=== PATIENT | female | born 1950 | race American Indian/Alaskan Native ===

== ENCOUNTER 2018-06-14 13:12 | Inpatient (IN) | payer MEDICARE, MEDICAID ==
[~2018-06-14] VITALS: Ht 152.4 cm; Wt 134.7 kg
[2018-06-14] MEDS ORDERED: IPRATROPIUM BROMIDE (0.02%) 0.5MG/2.5ML NEB HHN STA (13:15)
[2018-06-14] MEDS ORDERED: ASPIRIN 81MG TABLET PO ONE (13:15)
[2018-06-14] MEDS ORDERED: ALBUTEROL (0.083%) 2.5MG/3ML NEB HHN STA (13:15)
[2018-06-14 13:52] LABS: BG BASE EXCESS -1.1 mmol/L (-2.0-2.0); BG BILEVEL POS AIRWAY PRESSURE ST: 18/5; BG CARBOXYHEMOGLOBIN 0.5 % (0.5-1.5); BG DEOXYHEMOGLOBIN 0.5 % (0.0-5.0); BG FRACTION INSPIRED OXYGEN 100; BG HCO3 ACT 23.9 mmol/L (22.0-26.0); BG METHEMOGLOBIN 0.2 % (0.0-1.5); BG OXYGEN SATURATION 99.5 % (92.0-98.5); BG OXYHEMOGLOBIN 98.8 % (94.0-97.0); BG PH 7.383 (7.350-7.450); BG PO2 404.3 mmHg (75.0-100.0); BG SAMPLE SITE LEFT RADIAL; BG TOTAL HEMOGLOBIN 11.8 g/dL (12.0-18.0); BG VENT MODE MASK - BIPAP; BG VENT RATE 16 set
[2018-06-14 13:54] LABS: HEMATOCRIT. 34.4 % (36.0-48.0); HEMOGLOBIN. 11.4 g/dL (12.0-16.0); MEAN CORPUSCULAR HEMOGLOBIN 27.2 pg (28.0-32.0); MEAN CORPUSCULAR VOLUME 82.1 fL (81.0-99.0); MEAN PLATELET VOLUME 8.7 fl (7.4-10.4); PLATELET 194 x1000/uL (130-400); RED BLOOD CELL COUNT 4.19 mill/uL (4.2-5.4); RED CELL DISTRIBUTION WIDTH 14.3 % (11.6-14.6)
[2018-06-14 14:01] LABS: CHLORIDE 111 mEq/L (98-107)
[2018-06-14 14:22] LABS: ATYPICAL LYMPHOCYTES 1; PLATELET ESTIMATE NORMAL
[2018-06-14] MEDS ORDERED: FUROSEMIDE 40MG/4ML VIAL IVP ONE (14:45)
[2018-06-14] MEDS ORDERED: NITROGLYCERIN 0.4MG TABLET SL SL ONE (16:00)
[2018-06-14] MEDS ORDERED: CLONIDINE 0.1MG TABLET PO PRN ×2 (16:45→19:00)
[2018-06-14] MEDS ORDERED: KETOROLAC 15MG/ML VIAL IV PRN (16:45)
[2018-06-14] MEDS ORDERED: GUAIFENESIN 200MG/10ML SUGAR FREE UDC PO PRN (16:45)
[2018-06-14] MEDS ORDERED: ONDANSETRON HCL 4MG/2ML INJ IV PRN (16:45)
[2018-06-14] MEDS ORDERED: DOCUSATE SODIUM 100MG CAPSULE PO PRN (16:45)
[2018-06-14] MEDS ORDERED: LORAZEPAM 0.5MG TABLET PO PRN (16:45)
[2018-06-14] MEDS ORDERED: ENOXAPARIN 40MG/0.4ML SYR SUBCUT SCH (16:45)
[2018-06-14] MEDS ORDERED: NITROGLYCERIN 0.4MG TABLET SL SL PRN (16:45)
[2018-06-14] MEDS ORDERED: ACETAMINOPHEN 325MG TABLET PO PRN (16:45)
[2018-06-14] MEDS ORDERED: LABETALOL HCL 20MG/4ML CARPUJECT IV ONE (16:45)
[2018-06-14] MEDS ORDERED: IPRATROPIUM/ALBUTEROL 0.5-3(2.5)MG/3ML NEB INH PRN (16:45)
[2018-06-14] MEDS ORDERED: MAGNESIUM/ALUMINUM HYDROXIDE/SIMETHICONE 30ML UDC PO PRN (16:45)
[2018-06-14 23:49] LABS: CREATINE KINASE 159 IU/L (26-192); CREATINE KINASE MB FRACTION < 1.0 ng/mL (0.5-3.6)
[2018-06-15] VITALS: BP_SYST 191; BP_SYST 199; BP_DIAS 98
[2018-06-15] MEDS ORDERED: MORPHINE SULFATE 4 MG/ML CPJ (NOT FOR IM USE) IV PRN (00:09)
[2018-06-15] MEDS ORDERED: ZOLPIDEM TARTRATE 5MG TABLET PO PRN (00:10)
[2018-06-15] MEDS ORDERED: TRAMADOL 50MG TABLET PO PRN (00:10)
[2018-06-15] MEDS ORDERED: NA PHOS,M-B/NA PHOS,DI-BA ENEMA 118ML PR PRN (00:13)
[2018-06-15] MEDS: IPRATROPIUM/ALBUTEROL 0.5-3(2.5)MG/3ML NEB HHN SCH ×6 (00:26→21:15)
[2018-06-15] MEDS: METOPROLOL TARTRATE 25MG TABLET PO SCH ×3 (00:44→20:22)
[2018-06-15] MEDS: SPIRONOLACTONE 25MG TABLET PO SCH ×3 (00:45→20:22)
[2018-06-15] MEDS: LISINOPRIL 20MG TABLET PO SCH ×3 (00:45→20:23)
[2018-06-15] MEDS: FUROSEMIDE 40MG/4ML VIAL IVP SCH ×3 (00:46→20:24)
[2018-06-15] MEDS ORDERED: CEFTRIAXONE 1 G PREMIX 50 ML IV SCH (01:00)
[2018-06-15] MEDS ORDERED: AZITHROMYCIN 500 MG in DEXT 5% WATER 250 ML IV SCH (02:00)
[2018-06-15 04:00] VITALS: BP 124/51
[2018-06-15] MEDS ORDERED: FURO-151 PO (04:53)
[2018-06-15] MEDS ORDERED: HYDR-4135 PO (04:53)
[2018-06-15] MEDS ORDERED: METHYLPREDNISOLONE SOD SUCC 125 MG/2 ML VIAL IV SCH (06:00)
[2018-06-15 07:38] LABS: CREATINE KINASE MB FRACTION 1.6 ng/mL (0.5-3.6)
[2018-06-15 08:00] VITALS: BP 139/59
[2018-06-15] MEDS ORDERED: FAMOTIDINE 20MG TABLET PO SCH (09:00)
[2018-06-15] MEDS: AMLODIPINE 10MG TABLET PO SCH (09:23)
[2018-06-15] MEDS: GUAIFENESIN/DM 600MG/30MG ER TAB 12HR PO SCH ×2 (09:24→20:22)
[2018-06-15] MEDS: FAMOTIDINE 20MG TABLET PO SCH (09:24)
[2018-06-15] MEDS: ASCORBIC ACID 500 MG TABLET PO SCH ×2 (09:24→20:22)
[2018-06-15] MEDS: ZINC SULFATE 220 MG ( 50 ) CAPSULE PO SCH (09:24)
[2018-06-15] MEDS: ASPIRIN 325MG EC TABLET PO SCH (09:24)
[2018-06-15] MEDS: ENOXAPARIN 30MG/0.3ML SYR SUBCUT SCH ×2 (09:25→20:21)
[2018-06-15 12:00] VITALS: BP 149/69
[2018-06-15] MEDS: BUDESONIDE 0.5MG/2ML NEB HHN SCH ×2 (14:09→21:15)
[2018-06-15 16:00] VITALS: BP 157/67
[2018-06-15] MEDS: CEFTRIAXONE 1 G PREMIX 50 ML IV SCH (20:23)
[2018-06-15] MEDS: AZITHROMYCIN 500 MG in DEXT 5% WATER 250 ML IV SCH (21:36)
[2018-06-16] MEDS: IPRATROPIUM/ALBUTEROL 0.5-3(2.5)MG/3ML NEB HHN SCH ×6 (01:30→20:47)
[2018-06-16 01:48] LABS: CLARITY URINE CLEAR (CLEAR); COLOR URINE YELLOW (YELLOW); KETONES URINE NEGATIVE (NEGATIVE); LEUKOCYTE ESTERASE URINE NEGATIVE (NEGATIVE); NITRITE URINE NEGATIVE (NEGATIVE); OCCULT BLOOD URINE NEGATIVE (NEGATIVE); PROTEIN URINE NEGATIVE (NEGATIVE); SPECIFIC GRAVITY URINE 1.007 (1.005-1.030); UROBILINOGEN URINE 0.2 E.U./dL (0.2-1.0)
[2018-06-16 02:02] LABS: *AMPHETAMINES SCREEN URINE NEGATIVE (NEGATIVE); *BARBITURATES SCREEN URINE NEGATIVE (NEGATIVE); *BENZODIAZEPINES SCREEN URINE NEGATIVE (NEGATIVE); *COCAINE SCREEN URINE NEGATIVE (NEGATIVE)
[2018-06-16 02:03] LABS: CANNABINOID URINE SCREEN NEGATIVE (NEGATIVE); METHADONE URINE SCREEN NEGATIVE (NEGATIVE); OPIATES URINE SCREEN NEGATIVE (NEGATIVE); PHENCYCLIDINE URINE SCREEN NEGATIVE (NEGATIVE)
[2018-06-16 04:00] VITALS: BP 171/93
[2018-06-16 08:00] VITALS: BP 161/77
[2018-06-16] MEDS: ASCORBIC ACID 500 MG TABLET PO SCH ×2 (09:42→20:31)
[2018-06-16] MEDS: SPIRONOLACTONE 25MG TABLET PO SCH ×2 (09:43→20:30)
[2018-06-16] MEDS: AMLODIPINE 10MG TABLET PO SCH (09:43)
[2018-06-16] MEDS: FAMOTIDINE 20MG TABLET PO SCH (09:43)
[2018-06-16] MEDS: LISINOPRIL 20MG TABLET PO SCH ×2 (09:43→20:34)
[2018-06-16] MEDS: ZINC SULFATE 220 MG ( 50 ) CAPSULE PO SCH (09:44)
[2018-06-16] MEDS: METOPROLOL TARTRATE 25MG TABLET PO SCH ×2 (09:44→20:31)
[2018-06-16] MEDS: ASPIRIN 325MG EC TABLET PO SCH (09:44)
[2018-06-16] MEDS: GUAIFENESIN/DM 600MG/30MG ER TAB 12HR PO SCH ×2 (09:44→20:30)
[2018-06-16] MEDS: ENOXAPARIN 30MG/0.3ML SYR SUBCUT SCH ×2 (09:45→20:34)
[2018-06-16] MEDS: FUROSEMIDE 40MG/4ML VIAL IVP SCH ×2 (09:45→20:31)
[2018-06-16] MEDS: BUDESONIDE 0.5MG/2ML NEB HHN SCH (09:57)
[2018-06-16 12:00] VITALS: BP 131/52
[2018-06-16 16:00] VITALS: BP 145/69
[2018-06-16 20:00] VITALS: BP 126/56
[2018-06-16] MEDS: CEFTRIAXONE 1 G PREMIX 50 ML IV SCH (20:30)
[2018-06-16] MEDS: AZITHROMYCIN 500 MG in DEXT 5% WATER 250 ML IV SCH (22:06)
[2018-06-17] VITALS: BP 110/64
[2018-06-17] MEDS: IPRATROPIUM/ALBUTEROL 0.5-3(2.5)MG/3ML NEB HHN SCH ×6 (00:39→22:55)
[2018-06-17 04:00] VITALS: BP 156/72
[2018-06-17 08:00] VITALS: BP 149/69
[2018-06-17] MEDS: ENOXAPARIN 30MG/0.3ML SYR SUBCUT SCH ×2 (08:26→20:38)
[2018-06-17] MEDS: ZINC SULFATE 220 MG ( 50 ) CAPSULE PO SCH (08:27)
[2018-06-17] MEDS: LISINOPRIL 20MG TABLET PO SCH ×2 (08:27→20:37)
[2018-06-17] MEDS: AMLODIPINE 10MG TABLET PO SCH (08:27)
[2018-06-17] MEDS: FAMOTIDINE 20MG TABLET PO SCH (08:27)
[2018-06-17] MEDS: SPIRONOLACTONE 25MG TABLET PO SCH ×2 (08:27→20:37)
[2018-06-17] MEDS: ASCORBIC ACID 500 MG TABLET PO SCH ×2 (08:27→20:37)
[2018-06-17] MEDS: FUROSEMIDE 40MG/4ML VIAL IVP SCH ×2 (08:27→20:37)
[2018-06-17] MEDS: ASPIRIN 325MG EC TABLET PO SCH (08:27)
[2018-06-17] MEDS: METOPROLOL TARTRATE 25MG TABLET PO SCH ×2 (08:32→20:37)
[2018-06-17] MEDS: BUDESONIDE 0.5MG/2ML NEB HHN SCH ×2 (09:28→22:55)
[2018-06-17] MEDS: GUAIFENESIN/DM 600MG/30MG ER TAB 12HR PO SCH ×2 (10:26→20:37)
[2018-06-17 12:00] VITALS: BP 139/71
[2018-06-17 16:00] VITALS: BP 147/72
[2018-06-17] MEDS: LEVOFLOXACIN 250MG TABLET PO SCH (17:03)
[2018-06-17 20:00] VITALS: BP 124/68
[2018-06-18] VITALS: BP 142/68
[2018-06-18] MEDS: IPRATROPIUM/ALBUTEROL 0.5-3(2.5)MG/3ML NEB HHN SCH ×4 (01:51→13:21)
[2018-06-18 04:00] VITALS: BP 140/60
[2018-06-18 08:00] VITALS: BP 142/67
[2018-06-18] MEDS: FAMOTIDINE 20MG TABLET PO SCH (08:49)
[2018-06-18] MEDS: GUAIFENESIN/DM 600MG/30MG ER TAB 12HR PO SCH (08:49)
[2018-06-18] MEDS: ZINC SULFATE 220 MG ( 50 ) CAPSULE PO SCH (08:49)
[2018-06-18] MEDS: ASPIRIN 325MG EC TABLET PO SCH (08:49)
[2018-06-18] MEDS: LISINOPRIL 20MG TABLET PO SCH (08:50)
[2018-06-18] MEDS: ASCORBIC ACID 500 MG TABLET PO SCH (08:50)
[2018-06-18] MEDS: AMLODIPINE 10MG TABLET PO SCH (08:51)
[2018-06-18] MEDS: METOPROLOL TARTRATE 25MG TABLET PO SCH (08:51)
[2018-06-18] MEDS: ENOXAPARIN 30MG/0.3ML SYR SUBCUT SCH (08:52)
[2018-06-18] MEDS: BUDESONIDE 0.5MG/2ML NEB HHN SCH (09:22)
[2018-06-18] MEDS: LEVOFLOXACIN 250MG TABLET PO SCH (11:48)
[2018-06-18 12:00] VITALS: BP 134/67
[2018-06-18 16:56] VITALS: BP 134/67
== END 2018-06-18 18:38 | disposition home or self-care (01) | DRG 280 ==
LOC: EDBD 13:31 → ER 13:31 → 7WST 15:53 → EDBEDREQ 15:56 → SUPCPDRO 16:43 → ENRESERV 22:21
PROVIDERS: ADMIT Internal Medicine; ATTEND Internal Medicine
PROC: 5A09357 Assistance with Respiratory Ventilation, Less than 24 Consecutive Hours, Continuous Positive Airway Pressure (ICD-10-PCS; principal; 2018-06-14)
DX: I21.4 Non-ST elevation (NSTEMI) myocardial infarction (principal); J96.00 Acute respiratory failure, unspecified whether with hypoxia or hypercapnia; I50.33 Acute on chronic diastolic (congestive) heart failure; J44.1 Chronic obstructive pulmonary disease with (acute) exacerbation; J44.0 Chronic obstructive pulmonary disease with (acute) lower respiratory infection; J98.11 Atelectasis; Z68.43 Body mass index [BMI] 50.0-59.9, adult; I11.0 Hypertensive heart disease with heart failure; D72.825 Bandemia; E66.01 Morbid (severe) obesity due to excess calories; Z79.899 Other long term (current) drug therapy
CPT/HCPCS: 36415; 36600; 71045; 80061; 80305; 82375; 82550; 82553; 82805; 83036; 83605; 83880; 84484; 87804; 93005; 93306; 93970; 94618; 94640; 94660; 96374; 96375; 97116; 97162; 97166; 99291; J0456; J0696; J1650; J1940; J2405; J2930; J3490; J7050; J7060; J7611; J7620; J7626

== ENCOUNTER 2021-01-08 04:13 | Inpatient (IN) | payer MEDICARE, MEDICAID ==
[~2021-01-08] VITALS: Ht 152.4 cm; Wt 137.0 kg
[~2021-01-08 04:13] MED LIST: FURO-151 PO; HYDR-4135 PO
[2021-01-08] MEDS ORDERED: ALBUTEROL (0.083%) 2.5MG/3ML NEB HHN STA (04:24)
[2021-01-08] MEDS ORDERED: IPRATROPIUM BROMIDE (0.02%) 0.5MG/2.5ML NEB HHN STA (04:24)
[2021-01-08] MEDS ORDERED: PREDNISONE 20MG TABLET PO STA (04:24)
[2021-01-08] MEDS ORDERED: MAGNESIUM 2 G PREMIX 50 ML IV ONE (04:30)
[2021-01-08 05:41] LABS: CHLORIDE 105 mEq/L (98-107)
[2021-01-08 06:12] LABS: HEMATOCRIT 34.3 % (36.0-48.0); HEMOGLOBIN 11.6 g/dL (12.0-16.0); MEAN CORPUSCULAR VOLUME 82.7 fL (81.0-99.0); PLATELET 243 x1000/uL (130-400); RED BLOOD CELL COUNT 4.14 mill/uL (4.2-5.4); RED CELL DISTRIBUTION WIDTH 14.6 % (11.6-14.6)
[2021-01-08] MEDS ORDERED: IPRATROPIUM/ALBUTEROL 0.5-3(2.5)MG/3ML NEB HHN PRN (08:15)
[2021-01-08] MEDS ORDERED: NA PHOS,M-B/NA PHOS,DI-BA ENEMA 118ML PR PRN (08:15)
[2021-01-08] MEDS ORDERED: GUAIFENESIN 200MG/10ML SUGAR FREE UDC PO PRN (08:15)
[2021-01-08] MEDS ORDERED: MAGNESIUM/ALUMINUM HYDROXIDE/SIMETHICONE 30ML UDC PO PRN (08:15)
[2021-01-08] MEDS ORDERED: DOCUSATE SODIUM 100MG CAPSULE PO PRN (08:15)
[2021-01-08] MEDS ORDERED: CEFTRIAXONE 1 G PREMIX 50 ML IV NR (08:15)
[2021-01-08] MEDS ORDERED: LORAZEPAM 2MG/ML CPJ IV PRN (08:15)
[2021-01-08] MEDS ORDERED: HYDROCODONE/ACETAMINOPHEN 5/325MG TABLET PO PRN (08:15)
[2021-01-08] MEDS ORDERED: ONDANSETRON HCL 4MG/2ML INJ IV PRN (08:15)
[2021-01-08] MEDS: IPRATROPIUM/ALBUTEROL 0.5-3(2.5)MG/3ML NEB HHN SCH ×3 (10:27→20:35)
[2021-01-08] MEDS: METHYLPREDNISOLONE SOD SUCC 125 MG/2 ML VIAL IV SCH ×3 (10:37→22:44)
[2021-01-08] MEDS: ENOXAPARIN 40MG/0.4ML SYR SUBCUT SCH (10:42)
[2021-01-08] MEDS: AZITHROMYCIN 500 MG in DEXT 5% WATER 250 ML IV SCH (15:42)
[2021-01-08] MEDS: FUROSEMIDE 40MG TABLET PO SCH (15:42)
[2021-01-08] MEDS: FLUTICASONE PROPIONATE 50MCG/SPRAY BOTTLE BOTHNSTRLS SCH ×2 (18:05→23:21)
[2021-01-08] MEDS: BENZONATATE 100MG CAPSULE PO SCH ×2 (18:05→23:21)
[2021-01-08] MEDS ORDERED: NALOXONE HCL 0.4MG/ML VIAL IV PRN (20:45)
[2021-01-08 22:55] VITALS: BP_SYST 142; BP_DIAS 63; BP_DIAS 67
[2021-01-09] VITALS: BP 140/66
[2021-01-09] MEDS: GUAIFENESIN-DM 200MG-20MG/10ML UDC PO PRN ×4 (00:01→22:36)
[2021-01-09] MEDS ORDERED: LISI40TA13 PO (00:43)
[2021-01-09] MEDS ORDERED: FURO80TA87 MT (00:43)
[2021-01-09] MEDS ORDERED: POTA-9 PO (00:43)
[2021-01-09] MEDS: METHYLPREDNISOLONE SOD SUCC 125 MG/2 ML VIAL IV SCH ×2 (02:18→08:45)
[2021-01-09] MEDS: IPRATROPIUM/ALBUTEROL 0.5-3(2.5)MG/3ML NEB HHN SCH ×4 (02:37→20:16)
[2021-01-09 04:00] VITALS: BP 144/83
[2021-01-09] MEDS: BENZONATATE 100MG CAPSULE PO SCH ×3 (06:04→21:24)
[2021-01-09] MEDS ORDERED: CEFTRIAXONE 1,000 MG in DEXTROSE 5% WATER 50 ML IV SCH (08:00)
[2021-01-09] MEDS: AZITHROMYCIN 500 MG in DEXT 5% WATER 250 ML IV SCH (08:42)
[2021-01-09] MEDS: FLUTICASONE PROPIONATE 50MCG/SPRAY BOTTLE BOTHNSTRLS SCH ×2 (08:43→21:24)
[2021-01-09] MEDS: FUROSEMIDE 40MG TABLET PO SCH (08:44)
[2021-01-09] MEDS: ENOXAPARIN 40MG/0.4ML SYR SUBCUT SCH (08:44)
[2021-01-09 09:42] LABS: BASOPHILS % 0.4 % (0.0-2.0); HEMATOCRIT. 41.4 % (36.0-48.0); HEMOGLOBIN. 13.4 g/dL (12.0-16.0); MEAN CORPUSCULAR HEMOGLOBIN 27.6 pg (28.0-32.0); MEAN CORPUSCULAR VOLUME 85.2 fL (81.0-99.0); MONOCYTES % 2.4 % (2.0-8.0); NEUTROPHILS % 88.2 % (40.0-76.0); RED BLOOD CELL COUNT 4.85 mill/uL (4.2-5.4); RED CELL DISTRIBUTION WIDTH 14.7 % (11.6-14.6)
[2021-01-09 09:53] LABS: CHLORIDE 105 mEq/L (98-107)
[2021-01-09] MEDS: CEFTRIAXONE 1,000 MG in DEXTROSE 5% WATER 50 ML IV SCH (10:28)
[2021-01-09 12:17] VITALS: BP 127/61
[2021-01-09 13:40] LABS: MEAN PLATELET VOLUME 9.4 fl (7.4-10.4); PLATELET 232 x1000/uL (130-400)
[2021-01-09 16:00] VITALS: BP 151/73
[2021-01-09] MEDS: ACETAMINOPHEN 325MG TABLET PO PRN (17:46)
[2021-01-09 20:00] VITALS: BP 150/58
[2021-01-09] MEDS: BUDESONIDE 0.5MG/2ML NEB HHN SCH (20:16)
[2021-01-09] MEDS: METHYLPREDNISOLONE SOD SUCC 40 MG/ML VIAL IV SCH (21:24)
[2021-01-10] VITALS: BP 131/56
[2021-01-10] MEDS: IPRATROPIUM/ALBUTEROL 0.5-3(2.5)MG/3ML NEB HHN SCH ×4 (02:00→20:52)
[2021-01-10] MEDS: ACETAMINOPHEN 325MG TABLET PO PRN ×2 (02:06→12:59)
[2021-01-10 04:00] VITALS: BP 162/78
[2021-01-10] MEDS: CLONIDINE 0.1MG TABLET PO PRN ×2 (04:47→17:50)
[2021-01-10] MEDS: METHYLPREDNISOLONE SOD SUCC 40 MG/ML VIAL IV SCH ×3 (05:37→21:24)
[2021-01-10] MEDS: BENZONATATE 100MG CAPSULE PO SCH ×3 (05:37→21:24)
[2021-01-10] MEDS: BUDESONIDE 0.5MG/2ML NEB HHN SCH ×2 (07:41→20:53)
[2021-01-10 08:05] VITALS: BP 147/74
[2021-01-10] MEDS: FUROSEMIDE 40MG TABLET PO SCH (08:49)
[2021-01-10] MEDS: FLUTICASONE PROPIONATE 50MCG/SPRAY BOTTLE BOTHNSTRLS SCH ×2 (08:50→21:24)
[2021-01-10] MEDS: ENOXAPARIN 40MG/0.4ML SYR SUBCUT SCH (08:51)
[2021-01-10] MEDS: CEFTRIAXONE 1,000 MG in DEXTROSE 5% WATER 50 ML IV SCH (09:02)
[2021-01-10] MEDS ORDERED: AZITHROMYCIN 500 MG in DEXT 5% WATER 250 ML IV SCH (11:00)
[2021-01-10 12:15] VITALS: BP 144/58
[2021-01-10 16:30] VITALS: BP 190/85
[2021-01-10 20:00] VITALS: BP 115/56
[2021-01-11] VITALS: BP 120/55
[2021-01-11] MEDS: IPRATROPIUM/ALBUTEROL 0.5-3(2.5)MG/3ML NEB HHN SCH ×4 (01:13→21:18)
[2021-01-11 04:00] VITALS: BP 111/51
[2021-01-11] MEDS: METHYLPREDNISOLONE SOD SUCC 40 MG/ML VIAL IV SCH (06:00)
[2021-01-11] MEDS: BENZONATATE 100MG CAPSULE PO SCH ×3 (06:36→21:14)
[2021-01-11 08:00] VITALS: BP 120/45
[2021-01-11] MEDS: BUDESONIDE 0.5MG/2ML NEB HHN SCH ×2 (08:43→21:18)
[2021-01-11] MEDS: FLUTICASONE PROPIONATE 50MCG/SPRAY BOTTLE BOTHNSTRLS SCH (09:53)
[2021-01-11] MEDS: ENOXAPARIN 40MG/0.4ML SYR SUBCUT SCH (09:54)
[2021-01-11] MEDS: FUROSEMIDE 40MG TABLET PO SCH (09:54)
[2021-01-11] MEDS: PREDNISONE 20MG TABLET PO SCH (10:01)
[2021-01-11] MEDS ORDERED: LEVOFLOXACIN 500MG TABLET PO SCH (11:00)
[2021-01-11 12:00] VITALS: BP 130/50
[2021-01-11 15:11] LABS: BG CARBOXYHEMOGLOBIN 0.4 % (0.5-1.5); BG DEOXYHEMOGLOBIN 5.9 % (0.0-5.0); BG HCO3 ACT 26.8 mmol/L (22.0-26.0); BG METHEMOGLOBIN 0.3 % (0.0-1.5); BG OXYGEN SATURATION 94.1 % (92.0-98.5); BG OXYHEMOGLOBIN 93.4 % (94.0-97.0); BG PCO2 42.8 mmHg (35.0-45.0); BG PH 7.415 (7.350-7.450); BG PO2 69.1 mmHg (75.0-100.0); BG SAMPLE SITE RIGHT RADIAL; BG VENT MODE ROOM AIR
[2021-01-11 16:00] VITALS: BP 141/67
[2021-01-11 20:00] VITALS: BP 145/62
[2021-01-12] VITALS: BP 135/59
[2021-01-12] MEDS: IPRATROPIUM/ALBUTEROL 0.5-3(2.5)MG/3ML NEB HHN SCH ×2 (01:03→08:40)
[2021-01-12 04:00] VITALS: BP 146/64
[2021-01-12] MEDS: BENZONATATE 100MG CAPSULE PO SCH (06:47)
[2021-01-12 08:21] VITALS: BP 152/80
[2021-01-12] MEDS: BUDESONIDE 0.5MG/2ML NEB HHN SCH (08:40)
[2021-01-12] MEDS: FUROSEMIDE 40MG TABLET PO SCH (09:11)
[2021-01-12] MEDS: ENOXAPARIN 40MG/0.4ML SYR SUBCUT SCH (09:11)
[2021-01-12] MEDS: PREDNISONE 20MG TABLET PO SCH (09:11)
[2021-01-12] MEDS ORDERED: LEVOFLOXACIN 250MG TABLET PO SCH (11:00)
[2021-01-12 12:09] VITALS: BP 166/77
[2021-01-12 12:37] VITALS: BP 102/86
[2021-01-12] MEDS ORDERED: ATORVASTATIN CALCIUM 20MG TABLET PO SCH (21:00)
== END 2021-01-12 14:31 | disposition home health service (06) | DRG 291 ==
LOC: ER 04:13 → MICUSO 05:28 → EDBEDREQ 10:43 → 6WST 20:42
PROVIDERS: ADMIT Hospitalist; ATTEND Hospitalist
DX: I13.0 Hypertensive heart and chronic kidney disease with heart failure and stage 1 through stage 4 chronic kidney disease, or unspecified chronic kidney disease (principal); J96.00 Acute respiratory failure, unspecified whether with hypoxia or hypercapnia; I50.33 Acute on chronic diastolic (congestive) heart failure; J44.1 Chronic obstructive pulmonary disease with (acute) exacerbation; N17.9 Acute kidney failure, unspecified; J44.0 Chronic obstructive pulmonary disease with (acute) lower respiratory infection; Z68.43 Body mass index [BMI] 50.0-59.9, adult; J20.9 Acute bronchitis, unspecified; I11.0 Hypertensive heart disease with heart failure; E66.01 Morbid (severe) obesity due to excess calories; N18.9 Chronic kidney disease, unspecified; E78.5 Hyperlipidemia, unspecified; F17.210 Nicotine dependence, cigarettes, uncomplicated; Z20.822 Contact with and (suspected) exposure to COVID-19; Z71.6 Tobacco abuse counseling
CPT/HCPCS: 36415; 36600; 70490; 71045; 71250; 80053; 82375; 82805; 83605; 84145; 85025; 85027; 87426; 93005; 93970; 94640; 99285; C1893; J0456; J0696; J1650; J2920; J2930; J7060; J7512; J7626

== ENCOUNTER 2022-03-25 16:12 | Emergency (ER) | payer MEDICARE, MEDICAID ==
[~2022-03-25] VITALS: Ht 152.4 cm; Wt 114.0 kg
[~2022-03-25 16:12] MED LIST changes: -FURO-151 PO; +FURO80TA87 MT; -HYDR-4135 PO; +LISI40TA13 PO; +POTA-202 PO
[2022-03-25 17:40] LABS: BASOPHILS % 1.2 % (0.0-2.0); HEMATOCRIT. 37.2 % (36.0-48.0); HEMOGLOBIN. 13.1 g/dL (12.0-16.0); MEAN CORPUSCULAR HEMOGLOBIN 29.2 pg (28.0-32.0); MEAN CORPUSCULAR VOLUME 82.8 fL (81.0-99.0); MEAN PLATELET VOLUME 8.3 fl (7.4-10.4); MONOCYTES % 7.3 % (2.0-8.0); NEUTROPHILS % 63.5 % (40.0-76.0); PLATELET 305 x1000/uL (130-400); RED CELL DISTRIBUTION WIDTH 13.9 % (11.6-14.6)
[2022-03-25 17:45] LABS: CHLORIDE 105 mEq/L (98-107)
[2022-03-25 17:48] LABS: INR 0.9; PROTHROMBIN TIME 10.1 sec (9.6-11.0)
[2022-03-25 19:07] LABS: CLARITY URINE CLEAR (CLEAR); COLOR URINE YELLOW (YELLOW); KETONES URINE NEGATIVE (NEGATIVE)
[2022-03-25 19:08] LABS: LEUKOCYTE ESTERASE URINE NEGATIVE (NEGATIVE); NITRITE URINE NEGATIVE (NEGATIVE); OCCULT BLOOD URINE NEGATIVE (NEGATIVE); PROTEIN URINE NEGATIVE (NEGATIVE); SPECIFIC GRAVITY URINE 1.015 (1.005-1.030); UROBILINOGEN URINE 0.2 E.U./dL (0.2-1.0)
[2022-03-25 19:35] VITALS: BP 156/70
[2022-03-25] MEDS ORDERED: FURO80TA87 MT (21:25)
[2022-03-25] MEDS ORDERED: FURO80TA3 MT ×2 (21:25)
[2022-03-25] MEDS ORDERED: POTA-202 MT (21:25)
== END 2022-03-26 02:04 | disposition home or self-care (01) ==
LOC: ER 16:12
DX: R42 Dizziness and giddiness (principal); I11.0 Hypertensive heart disease with heart failure; I50.9 Heart failure, unspecified; J44.1 Chronic obstructive pulmonary disease with (acute) exacerbation; Z98.890 Other specified postprocedural states
CPT/HCPCS: 36415; 71045; 80053; 81003; 83880; 84484; 85025; 93005; 99285

== ENCOUNTER 2022-05-09 07:26 | Inpatient (IN) | payer MEDICARE, MEDICAID ==
[~2022-05-09] VITALS: Ht 152.4 cm; Wt 134.7 kg
[~2022-05-09 07:26] MED LIST changes: +ALBU90AE INH; +ASPI-1406 MT; +POTA-202 MT; -POTA-202 PO; +TIOT18CA3 INH
[2022-05-09] MEDS ORDERED: METHYLPREDNISOLONE SOD SUCC 125 MG/2 ML VIAL IV ONE (07:45)
[2022-05-09] MEDS ORDERED: IPRATROPIUM/ALBUTEROL 0.5-3(2.5)MG/3ML NEB HHN ONE ×2 (07:45→11:30)
[2022-05-09 08:30] LABS: BASOPHILS % 0.8 % (0.0-2.0); EOSINOPHILS % 8.4 % (0.0-5.0); HEMATOCRIT. 42.2 % (36.0-48.0); HEMOGLOBIN. 13.5 g/dL (12.0-16.0); LYMPHOCYTES % 32.8 % (20.0-50.0); MEAN CORPUSCULAR HEMOGLOBIN 26.7 pg (28.0-32.0); MEAN CORPUSCULAR VOLUME 83.5 fL (81.0-99.0); MEAN PLATELET VOLUME 8.4 fl (7.4-10.4); MONOCYTES % 8.1 % (2.0-8.0); NEUTROPHILS % 49.9 % (40.0-76.0); PLATELET 271 x1000/uL (130-400); RED BLOOD CELL COUNT 5.05 mill/uL (4.2-5.4); RED CELL DISTRIBUTION WIDTH 14.2 % (11.6-14.6)
[2022-05-09 08:36] LABS: CHLORIDE 110 mEq/L (98-107)
[2022-05-09 08:40] LABS: PROTHROMBIN TIME 10.4 sec (9.6-11.0)
[2022-05-09] MEDS ORDERED: MAGNESIUM 1 G PREMIX 100 ML IV ONE (11:30)
[2022-05-09] MEDS ORDERED: IPRATROPIUM/ALBUTEROL 0.5-3(2.5)MG/3ML NEB NEB PRN (14:45)
[2022-05-09] MEDS ORDERED: GUAIFENESIN 200MG/10ML SUGAR FREE UDC PO PRN (14:45)
[2022-05-09] MEDS ORDERED: ACETAMINOPHEN 325MG TABLET PO PRN ×2 (14:45)
[2022-05-09] MEDS ORDERED: NITROGLYCERIN 0.4MG TABLET SL SL PRN (14:45)
[2022-05-09] MEDS ORDERED: ONDANSETRON HCL 4MG/2ML INJ IV PRN (14:45)
[2022-05-09] MEDS ORDERED: MAGNESIUM/ALUMINUM HYDROXIDE/SIMETHICONE 30ML UDC PO PRN (14:45)
[2022-05-09] MEDS ORDERED: DOCUSATE SODIUM 100MG CAPSULE PO PRN (14:45)
[2022-05-09] MEDS ORDERED: CLONIDINE 0.1MG TABLET PO PRN (14:45)
[2022-05-09] MEDS: IPRATROPIUM/ALBUTEROL 0.5-3(2.5)MG/3ML NEB HHN SCH ×2 (14:46→20:00)
[2022-05-09] MEDS ORDERED: ENOXAPARIN 40MG/0.4ML SYR SUBCUT SCH (15:00)
[2022-05-09] MEDS ORDERED: AZITHROMYCIN 500MG/250ML 250 ML IV NR (15:00)
[2022-05-09] MEDS ORDERED: LOSARTAN POTASSIUM 50 MG TABLET PO SCH (15:00)
[2022-05-09] MEDS: METHYLPREDNISOLONE SOD SUCC 125 MG/2 ML VIAL IV SCH ×2 (15:21→22:00)
[2022-05-09] MEDS: AMLODIPINE 10MG TABLET PO SCH (15:22)
[2022-05-09] MEDS: FUROSEMIDE 40MG/4ML VIAL IVP SCH (17:31)
[2022-05-09] MEDS: GUAIFENESIN/DM 600MG/30MG ER TAB 12HR PO SCH (21:00)
[2022-05-09] MEDS: FAMOTIDINE 20MG TABLET PO SCH (21:00)
[2022-05-09] MEDS ORDERED: ZOLPIDEM TARTRATE 5MG TABLET PO PRN (21:00)
[2022-05-10 02:23] LABS: CREATINE KINASE MB FRACTION 3.1 ng/mL (0.5-3.6)
[2022-05-10 02:30] VITALS: BP 175/95
[2022-05-10 04:00] VITALS: BP 140/70
[2022-05-10] MEDS: METHYLPREDNISOLONE SOD SUCC 125 MG/2 ML VIAL IV SCH ×3 (05:15→21:20)
[2022-05-10 05:39] LABS: BASOPHILS % 0.1 % (0.0-2.0); HEMATOCRIT. 37.4 % (36.0-48.0); HEMOGLOBIN. 12.3 g/dL (12.0-16.0); LYMPHOCYTES % 9.8 % (20.0-50.0); MEAN CORPUSCULAR HEMOGLOBIN 27.4 pg (28.0-32.0); MEAN PLATELET VOLUME 8.7 fl (7.4-10.4); MONOCYTES % 2.2 % (2.0-8.0); NEUTROPHILS % 87.9 % (40.0-76.0); PLATELET 249 x1000/uL (130-400); RED CELL DISTRIBUTION WIDTH 13.7 % (11.6-14.6)
[2022-05-10] MEDS: ENOXAPARIN 150MG/ML SYR SUBCUT SCH ×2 (05:50→17:35)
[2022-05-10 06:17] LABS: CREATINE KINASE MB FRACTION 2.9 ng/mL (0.5-3.6)
[2022-05-10 06:52] LABS: PROTHROMBIN TIME 10.8 sec (9.6-11.0)
[2022-05-10] MEDS: FUROSEMIDE 40MG/4ML VIAL IVP SCH (06:52)
[2022-05-10 06:53] LABS: CHLORIDE 108 mEq/L (98-107)
[2022-05-10 07:11] LABS: PHOSPHORUS 2.9 mg/dL (2.5-4.9)
[2022-05-10 08:00] VITALS: BP 155/78
[2022-05-10] MEDS: ASPIRIN 81MG EC TABLET PO SCH (09:17)
[2022-05-10] MEDS: AMLODIPINE 10MG TABLET PO SCH (09:17)
[2022-05-10] MEDS: GUAIFENESIN/DM 600MG/30MG ER TAB 12HR PO SCH ×2 (09:17→20:01)
[2022-05-10] MEDS: IPRATROPIUM/ALBUTEROL 0.5-3(2.5)MG/3ML NEB HHN SCH ×5 (09:32→20:27)
[2022-05-10] MEDS ORDERED: INFLUENZA VACCINE 05/PF 0.5 ML SYRINGE IM ONE (10:00)
[2022-05-10] MEDS ORDERED: ALPRAZOLAM 0.25 MG TABLET PO PRN (10:00)
[2022-05-10 12:00] VITALS: BP 157/77
[2022-05-10] MEDS ORDERED: AZITHROMYCIN 500 MG in DEXT 5% WATER 250 ML IV SCH (12:00)
[2022-05-10 16:00] VITALS: BP 130/65
[2022-05-10] MEDS: BENZONATATE 100MG CAPSULE PO SCH ×2 (17:34→22:18)
[2022-05-10] MEDS: FUROSEMIDE 40MG TABLET PO SCH (17:34)
[2022-05-10] MEDS ORDERED: SODIUM POLYSTYRENE SULFONATE 15 G/60 ML BOT PO NR (17:45)
[2022-05-10 20:00] VITALS: BP 149/66
[2022-05-10] MEDS: FAMOTIDINE 20MG TABLET PO SCH (20:01)
[2022-05-10] MEDS: AZITHROMYCIN 500 MG in DEXT 5% WATER 250 ML IV SCH (20:01)
[2022-05-11] VITALS: BP 139/65
[2022-05-11] MEDS: IPRATROPIUM/ALBUTEROL 0.5-3(2.5)MG/3ML NEB HHN SCH ×6 (00:28→20:25)
[2022-05-11 04:00] VITALS: BP 189/112
[2022-05-11] MEDS: ENOXAPARIN 150MG/ML SYR SUBCUT SCH ×2 (06:00→18:16)
[2022-05-11] MEDS: BENZONATATE 100MG CAPSULE PO SCH ×3 (06:18→21:51)
[2022-05-11] MEDS: METHYLPREDNISOLONE SOD SUCC 125 MG/2 ML VIAL IV SCH ×3 (06:18→21:51)
[2022-05-11] MEDS: FUROSEMIDE 40MG TABLET PO SCH ×2 (06:18→18:15)
[2022-05-11] MEDS: GUAIFENESIN 200MG/10ML SUGAR FREE UDC PO PRN (06:28)
[2022-05-11 07:29] LABS: HEMATOCRIT. 35.6 % (36.0-48.0); HEMOGLOBIN. 11.9 g/dL (12.0-16.0); MEAN CORPUSCULAR HEMOGLOBIN 27.4 pg (28.0-32.0); MEAN CORPUSCULAR VOLUME 82.3 fL (81.0-99.0); MEAN PLATELET VOLUME 8.3 fl (7.4-10.4); PLATELET 263 x1000/uL (130-400); RED BLOOD CELL COUNT 4.33 mill/uL (4.2-5.4); RED CELL DISTRIBUTION WIDTH 14.1 % (11.6-14.6)
[2022-05-11 07:53] VITALS: BP 178/85
[2022-05-11] MEDS: ASPIRIN 81MG EC TABLET PO SCH (08:07)
[2022-05-11] MEDS: GUAIFENESIN/DM 600MG/30MG ER TAB 12HR PO SCH ×2 (08:07→20:11)
[2022-05-11] MEDS: AMLODIPINE 10MG TABLET PO SCH (08:07)
[2022-05-11 10:19] LABS: CHLORIDE 102 mEq/L (98-107)
[2022-05-11 11:04] LABS: PHOSPHORUS 4.4 mg/dL (2.5-4.9)
[2022-05-11 12:00] VITALS: BP 132/66
[2022-05-11] MEDS: HYDRALAZINE HCL 50MG TABLET PO SCH ×2 (15:12→21:51)
[2022-05-11 16:00] VITALS: BP 153/64
[2022-05-11 17:59] LABS: CLARITY URINE CLEAR (CLEAR); COLOR URINE YELLOW (YELLOW); KETONES URINE NEGATIVE (NEGATIVE); LEUKOCYTE ESTERASE URINE NEGATIVE (NEGATIVE); NITRITE URINE NEGATIVE (NEGATIVE); OCCULT BLOOD URINE NEGATIVE (NEGATIVE); PROTEIN URINE NEGATIVE (NEGATIVE); SPECIFIC GRAVITY URINE 1.012 (1.005-1.030); UROBILINOGEN URINE 0.2 E.U./dL (0.2-1.0)
[2022-05-11 20:00] VITALS: BP 141/75
[2022-05-11] MEDS: AZITHROMYCIN 500 MG in DEXT 5% WATER 250 ML IV SCH (20:03)
[2022-05-11] MEDS: FAMOTIDINE 20MG TABLET PO SCH (20:11)
[2022-05-12] VITALS (7 sets, daily range): BP systolic 120–188; BP diastolic 55–96
[2022-05-12] MEDS: IPRATROPIUM/ALBUTEROL 0.5-3(2.5)MG/3ML NEB HHN SCH ×5 (00:05→17:05)
[2022-05-12] MEDS: METHYLPREDNISOLONE SOD SUCC 125 MG/2 ML VIAL IV SCH ×3 (06:00→20:46)
[2022-05-12] MEDS: HYDRALAZINE HCL 50MG TABLET PO SCH ×3 (06:21→20:47)
[2022-05-12] MEDS: BENZONATATE 100MG CAPSULE PO SCH ×3 (06:21→22:43)
[2022-05-12] MEDS: FUROSEMIDE 40MG TABLET PO SCH (06:21)
[2022-05-12] MEDS: ENOXAPARIN 150MG/ML SYR SUBCUT SCH ×2 (06:22→18:33)
[2022-05-12 06:54] LABS: HEMATOCRIT. 36.4 % (36.0-48.0); HEMOGLOBIN. 11.9 g/dL (12.0-16.0); MEAN CORPUSCULAR HEMOGLOBIN 26.8 pg (28.0-32.0); MEAN CORPUSCULAR VOLUME 82.1 fL (81.0-99.0); MEAN PLATELET VOLUME 8.8 fl (7.4-10.4); PLATELET 257 x1000/uL (130-400); RED BLOOD CELL COUNT 4.44 mill/uL (4.2-5.4); RED CELL DISTRIBUTION WIDTH 13.8 % (11.6-14.6)
[2022-05-12] MEDS: ASPIRIN 81MG EC TABLET PO SCH (08:10)
[2022-05-12] MEDS: GUAIFENESIN 200MG/10ML SUGAR FREE UDC PO PRN (08:11)
[2022-05-12] MEDS: AMLODIPINE 10MG TABLET PO SCH (08:11)
[2022-05-12] MEDS: GUAIFENESIN/DM 600MG/30MG ER TAB 12HR PO SCH ×2 (08:16→20:46)
[2022-05-12 10:22] LABS: PLATELET ESTIMATE NORMAL
[2022-05-12] MEDS: DILTIAZEM HCL 60MG TABLET PO SCH ×2 (14:55→20:46)
[2022-05-12] MEDS: AZITHROMYCIN 500 MG in DEXT 5% WATER 250 ML IV SCH (20:46)
[2022-05-12] MEDS: FAMOTIDINE 20MG TABLET PO SCH (20:46)
[2022-05-12 22:25] LABS: PLATELET ESTIMATE NORMAL
[2022-05-13] MEDS ORDERED: FUROSEMIDE 40MG TABLET PO SCH (09:00)
[2022-05-13 20:12] LABS: PHOSPHORUS 4.4 mg/dL (2.5-4.9)
== END 2022-05-12 22:50 | DRG 280 ==
LOC: ER 07:29 → 8WST 14:25 → ENRESERV 05-10 00:46
PROVIDERS: ADMIT Internal Medicine; ATTEND Internal Medicine
PROC: 5A09357 Assistance with Respiratory Ventilation, Less than 24 Consecutive Hours, Continuous Positive Airway Pressure (ICD-10-PCS; principal; 2022-05-09)
DX: I13.0 Hypertensive heart and chronic kidney disease with heart failure and stage 1 through stage 4 chronic kidney disease, or unspecified chronic kidney disease (principal); I21.4 Non-ST elevation (NSTEMI) myocardial infarction; I50.33 Acute on chronic diastolic (congestive) heart failure; J96.01 Acute respiratory failure with hypoxia; N17.0 Acute kidney failure with tubular necrosis; J44.1 Chronic obstructive pulmonary disease with (acute) exacerbation; Z68.43 Body mass index [BMI] 50.0-59.9, adult; I16.1 Hypertensive emergency; E87.5 Hyperkalemia; E66.9 Obesity, unspecified; E66.01 Morbid (severe) obesity due to excess calories; F17.210 Nicotine dependence, cigarettes, uncomplicated; N18.30 Chronic kidney disease, stage 3 unspecified; E78.5 Hyperlipidemia, unspecified; R26.9 Unspecified abnormalities of gait and mobility; R73.9 Hyperglycemia, unspecified; Z82.49 Family history of ischemic heart disease and other diseases of the circulatory system; Z91.14 Patient's other noncompliance with medication regimen; D63.1 Anemia in chronic kidney disease
CPT/HCPCS: 36415; 71045; 76770; 80048; 80053; 80061; 81003; 82550; 82553; 83036; 83735; 84100; 84484; 85025; 87426; 87804; 93005; 93308; 93970; 94640; 99291; C1893; J0456; J1650; J1940; J2930; J3475; J7060

== ENCOUNTER 2023-08-06 23:06 | Inpatient (IN) | payer MEDICARE, MEDICAID ==
[~2023-08-06] VITALS: Ht 157.5 cm; Wt 139.7 kg
[~2023-08-06 23:06] MED LIST changes: +AMLO5TAB88 PO; +CYAN-50 PO; +FAMO20TA8 PO; -FURO80TA87 MT; +HYDR200T35 PO; -LISI40TA13 PO; -POTA-202 MT; +PRED10TA PO; +VITA250012 MT
[2023-08-06 23:10] VITALS: RESP 16
[2023-08-06 23:35] VITALS: RESP 16
[2023-08-06] MEDS: ALBUTEROL (0.083%) 2.5MG/3ML NEB HHN STA (23:35)
[2023-08-06] MEDS: IPRATROPIUM BROMIDE (0.02%) 0.5MG/2.5ML NEB HHN STA (23:35)
[2023-08-06 23:38] LABS: BASOPHILS % 0.9 % (0.0-2.0); EOSINOPHILS % 5.3 % (0.0-5.0); HEMATOCRIT. 39.2 % (36.0-48.0); HEMOGLOBIN. 12.4 g/dL (12.0-16.0); LYMPHOCYTES % 37.9 % (20.0-50.0); MEAN CORPUSCULAR HEMOGLOBIN 27.5 pg (28.0-32.0); MEAN CORPUSCULAR HGB CONC 31.6 g/dL (31.0-37.0); MEAN CORPUSCULAR VOLUME 87.1 fL (81.0-99.0); MEAN PLATELET VOLUME 8.3 fl (7.4-10.4); MONOCYTES % 6.3 % (2.0-8.0); NEUTROPHILS % 49.6 % (40.0-76.0); PLATELET 226 x1000/uL (130-400); RED CELL DISTRIBUTION WIDTH 14.3 % (11.6-14.6); WHITE BLOOD COUNT 6.2 x1000/uL (4.5-11.0)
[2023-08-06] MEDS: METHYLPREDNISOLONE SOD SUCC 125MG/2ML (ACT-O-VIAL) IV STA (23:39)
[2023-08-06] MEDS: ASPIRIN 81MG TABLET PO ONE (23:40)
[2023-08-06] MEDS: HYDRALAZINE 20MG/ML VIAL IV ONE (23:44)
[2023-08-06 23:49] LABS: INR 0.9; PARTIAL THROMBOPLASTIN TIME 28.5 sec (23.4-31.0); PROTHROMBIN TIME 10.3 sec (9.6-11.0)
[2023-08-06 23:54] LABS: ALANINE AMINOTRANSFERASE 7 IU/L (10-49); ALBUMIN 4.5 g/dL (3.2-4.8); ASPARTATE AMINOTRANSFERASE 24 IU/L (<34); BILIRUBIN TOTAL 0.3 mg/dL (0.1-1.0); CALCIUM 9.1 mg/dL (8.7-10.4); CARBON DIOXIDE 26 mEq/L (21-32); CHLORIDE 111 mEq/L (98-107); CREATININE 1.6 mg/dL (0.6-1.0); GLUCOSE 94 mg/dL (70-105); POTASSIUM 4.8 mEq/L (3.5-5.1); PROTEIN TOTAL 7.7 g/dL (6.0-8.3); SODIUM 143 mEq/L (136-145); UREA NITROGEN BLOOD 25 mg/dL (9-23)
[2023-08-07] VITALS (13 sets, daily range): BP systolic 148–199; BP diastolic 75–112; PULSE 83–105; RESP 5–25; TEMP 97.6–97.9; O2SAT 91–98
[2023-08-07 00:01] LABS: BG BASE EXCESS 0.7 mmol/L (-2.0-2.0); BG CARBOXYHEMOGLOBIN 0.3 % (0.5-1.5); BG DEOXYHEMOGLOBIN 0.2 % (0.0-5.0); BG FRACTION INSPIRED OXYGEN 40; BG HCO3 ACT 27.3 mmol/L (22.0-26.0); BG METHEMOGLOBIN 0.4 % (0.0-1.5); BG OXYGEN SATURATION 99.8 % (92.0-98.5); BG OXYHEMOGLOBIN 99.1 % (94.0-97.0); BG PH 7.338 (7.350-7.450); BG PO2 332.3 mmHg (75.0-100.0); BG SAMPLE SITE RIGHT RADIAL; BG VENT MODE MASK - BIPAP
[2023-08-07 00:05] LABS: TROPONIN I HIGH SENSITIVITY 73 ng/L (3.0-34)
[2023-08-07] MEDS: CEFTRIAXONE 1GM/50ML 50 ML IV ONE (01:26)
[2023-08-07 01:29] LABS: TROPONIN I HIGH SENSITIVITY 84 ng/L (3.0-34)
[2023-08-07] MEDS: AZITHROMYCIN 500MG/250ML 250 ML IV ONE (01:29)
[2023-08-07 02:10] LABS: CLARITY URINE CLEAR (CLEAR); COLOR URINE YELLOW (YELLOW); GLUCOSE URINE NEGATIVE (NEGATIVE); KETONES URINE NEGATIVE (NEGATIVE); LEUKOCYTE ESTERASE URINE NEGATIVE (NEGATIVE); NITRITE URINE POSITIVE (NEGATIVE); OCCULT BLOOD URINE NEGATIVE (NEGATIVE); PROTEIN URINE 2+ (NEGATIVE); SPECIFIC GRAVITY URINE 1.012 (1.005-1.030); UROBILINOGEN URINE 0.2 E.U./dL (0.2-1.0)
[2023-08-07 05:23] LABS: WBC URINE 0-2 /hpf (0-2)
[2023-08-07 05:24] LABS: RBC URINE 0-2 /hpf (0-2); SQUAMOUS EPITHELIAL CELL URINE FEW /lpf (RARE/1+)
[2023-08-07 05:27] LABS: BACTERIA URINE 3+
[2023-08-07] MEDS ORDERED: IPRATROPIUM/ALBUTEROL 0.5-3(2.5)MG/3ML NEB HHN PRN ×2 (05:30→11:00)
[2023-08-07] MEDS: IPRATROPIUM/ALBUTEROL 0.5-3(2.5)MG/3ML NEB HHN SCH (08:18)
[2023-08-07] MEDS: BUDESONIDE 0.5MG/2ML NEB HHN SCH (08:18)
[2023-08-07] MEDS: ASPIRIN 81MG TABLET PO SCH (11:25)
[2023-08-07] MEDS: FAMOTIDINE 20MG TABLET PO SCH (11:26)
[2023-08-07] MEDS: AMLODIPINE 5MG TABLET PO SCH (11:26)
[2023-08-07] MEDS: PREDNISONE 10MG TABLET PO SCH (11:26)
[2023-08-07 11:40] LABS: BG BASE EXCESS 0.8 mmol/L (-2.0-2.0); BG CARBOXYHEMOGLOBIN 0.3 % (0.5-1.5); BG DEOXYHEMOGLOBIN 4.1 % (0.0-5.0); BG HCO3 ACT 25.9 mmol/L (22.0-26.0); BG METHEMOGLOBIN 0.2 % (0.0-1.5); BG OXYGEN SATURATION 95.9 % (92.0-98.5); BG OXYHEMOGLOBIN 95.4 % (94.0-97.0); BG PCO2 43.1 mmHg (35.0-45.0); BG PH 7.396 (7.350-7.450); BG SAMPLE SITE RIGHT BRACHIAL; BG TOTAL HEMOGLOBIN 13.5 g/dL (12.0-18.0); BG VENT MODE NASAL CANNULA
[2023-08-07] MEDS: HYDRALAZINE HCL 25MG TABLET PO PRN (12:44)
[2023-08-07] MEDS: LOSARTAN 50 MG TABLET PO NR (14:10)
[2023-08-07] MEDS: HYDRALAZINE 20MG/ML VIAL IV PRN (14:15)
[2023-08-07] MEDS ORDERED: HYDROXYCHLOROQUINE SULFATE 200MG TABLET PO SCH (17:00)
[2023-08-07] MEDS ORDERED: METHYLPREDNISOLONE SOD SUCC 40MG VIAL IV SCH (18:00)
[2023-08-07] MEDS: METHYLPREDNISOLONE SOD SUCC 40MG/ML (ACT-O-VIAL) IV SCH (18:38)
[2023-08-07] MEDS: HYDROXYCHLOROQUINE SULFATE 200MG TABLET PO SCH (21:00)
[2023-08-07] MEDS: ENOXAPARIN 150MG/ML SYR SUBCUT SCH (21:00)
[2023-08-08] VITALS (14 sets, daily range): BP systolic 151–179; BP diastolic 74–98; PULSE 82–110; RESP 15–22; TEMP 97–97.6; O2SAT 97–100
[2023-08-08] MEDS: CEFTRIAXONE 1GM/50ML 50 ML IV SCH (00:09)
[2023-08-08] MEDS: AZITHROMYCIN 500MG/250ML 250 ML IV SCH (00:09)
[2023-08-08] MEDS: CYANOCOBALAMIN 1000MCG TABLET PO SCH (09:14)
[2023-08-09] VITALS (16 sets, daily range): BP systolic 145–155; BP diastolic 69–92; PULSE 76–112; RESP 14–26; TEMP 97.2–98.6; O2SAT 97–99
[2023-08-09] MEDS: AMLODIPINE 10MG TABLET PO SCH (08:39)
[2023-08-10] VITALS (17 sets, daily range): BP systolic 129–173; BP diastolic 69–98; PULSE 73–99; RESP 12–25; TEMP 97.2–98.3; O2SAT 97–99
[2023-08-10 13:05] LABS: HEMATOCRIT. 38.3 % (36.0-48.0); HEMOGLOBIN. 12.4 g/dL (12.0-16.0); MEAN CORPUSCULAR HEMOGLOBIN 27.6 pg (28.0-32.0); MEAN CORPUSCULAR HGB CONC 32.3 g/dL (31.0-37.0); MEAN CORPUSCULAR VOLUME 85.4 fL (81.0-99.0); MEAN PLATELET VOLUME 8.6 fl (7.4-10.4); PLATELET 246 x1000/uL (130-400); RED BLOOD CELL COUNT 4.48 mill/uL (4.2-5.4); WHITE BLOOD COUNT 8.5 x1000/uL (4.5-11.0)
[2023-08-10 13:19] LABS: DIFFERENTIAL COMMENT 1
[2023-08-10 13:29] LABS: ALANINE AMINOTRANSFERASE < 7 IU/L (10-49); ALBUMIN 4.9 g/dL (3.2-4.8); ASPARTATE AMINOTRANSFERASE 11 IU/L (<34); BILIRUBIN TOTAL 0.3 mg/dL (0.1-1.0); CALCIUM 9.3 mg/dL (8.7-10.4); CARBON DIOXIDE 29 mEq/L (21-32); CHLORIDE 103 mEq/L (98-107); CREATININE 1.6 mg/dL (0.6-1.0); GLUCOSE 109 mg/dL (70-105); POTASSIUM 5.4 mEq/L (3.5-5.1); SODIUM 137 mEq/L (136-145); UREA NITROGEN BLOOD 38 mg/dL (9-23)
[2023-08-10 14:04] LABS: PLATELET ESTIMATE NORMAL
[2023-08-10] MEDS: CLONIDINE 0.1MG TABLET PO SCH (14:10)
[2023-08-10] MEDS: HYDRALAZINE HCL 25MG TABLET PO SCH (14:10)
== END 2023-08-11 00:10 | DRG 189 ==
LOC: ER 23:06 → 5EST 08-07 00:33
PROVIDERS: ADMIT Internal Medicine; ATTEND Internal Medicine
PROC: 5A09357 Assistance with Respiratory Ventilation, Less than 24 Consecutive Hours, Continuous Positive Airway Pressure (ICD-10-PCS; principal; 2023-08-07)
DX: J96.21 Acute and chronic respiratory failure with hypoxia (principal); I21.A1 Myocardial infarction type 2; J44.1 Chronic obstructive pulmonary disease with (acute) exacerbation; I13.0 Hypertensive heart and chronic kidney disease with heart failure and stage 1 through stage 4 chronic kidney disease, or unspecified chronic kidney disease; I50.32 Chronic diastolic (congestive) heart failure; N17.9 Acute kidney failure, unspecified; Z68.43 Body mass index [BMI] 50.0-59.9, adult; J96.22 Acute and chronic respiratory failure with hypercapnia; Z20.822 Contact with and (suspected) exposure to COVID-19; E66.9 Obesity, unspecified; N18.9 Chronic kidney disease, unspecified; F17.210 Nicotine dependence, cigarettes, uncomplicated; M17.0 Bilateral primary osteoarthritis of knee
CPT/HCPCS: 36415; 36600; 71045; 80053; 81003; 82375; 82805; 82962; 83605; 83880; 84484; 85025; 87426; 93005; 94640; 94644; 94660; 97162; 99291; J0360; J0456; J0696; J1650; J2920; J2930; J7512; J7626